=== PATIENT | female | born 1950 | race Caucasian/White ===

== ENCOUNTER → 2025-09-12 10:30 | Outpatient (BNVA) | payer MEDICARE, OTHER, SELFPAY | PROVIDERS: Absent Provider Internal Medicine Cardiovascular Disease; Referring Provider Nurse Practitioner Family; Visit Provider Internal Medicine Cardiovascular Disease | DX: R07.9 Chest pain, unspecified (principal); R94.31 Abnormal electrocardiogram [ECG] [EKG] | CPT/HCPCS: 93005 ==

== ENCOUNTER → 2025-09-15 13:39 | Outpatient (BNVA) | payer MEDICARE, OTHER, SELFPAY | PROVIDERS: Visit Provider Podiatrist Foot & Ankle Surgery | DX: M79.672 Pain in left foot (principal); M21.372 Foot drop, left foot; G57.92 Unspecified mononeuropathy of left lower limb | CPT/HCPCS: 73630; 99204 ==

== ENCOUNTER → 2025-09-25 07:30 | Outpatient (BNVA) | payer MEDICARE, OTHER, SELFPAY | PROVIDERS: Referring Provider Podiatrist Foot & Ankle Surgery; Visit Provider Specialist | DX: M21.372 Foot drop, left foot (principal); G62.89 Other specified polyneuropathies; M54.32 Sciatica, left side | CPT/HCPCS: 95885; 95909; 99203 ==

== ENCOUNTER 2025-09-29 13:43 | Outpatient (CLI) | payer MEDICARE, OTHER, SELFPAY ==
--- NOTE | 2025-09-29 14:15 | USCV_ITS ---
Renetta Gipson Age: 75 Gender: F : 1950 Exam Date: 09/29/2025 14:07 Ordering Phys: Nat Walker MD ([email or web address]) Technologist: Exam Location[place] [facility] [place]: cp sob dizzy BP: / HR: 73 Rhythm: Sinus Technical Quality: Adequate MEASUREMENTS (Male / Female) Normal Values 2D ECHO LV Diastolic Diameter PLAX 4.0 cm 4.2 - 5.9 / 3.9 - 5.3 cm IVS Diastolic Thickness 1.3 cm 0.6 - 1.0 / 0.6 - 0.9 cm IVS Systolic Thickness 1.8 cm LVPW Diastolic Thickness 1.2 cm 0.6 - 1.0 / 0.6 - 0.9 cm LVPW Systolic Thickness 1.7 cm LVOT Diameter 2.0 cm LV Ejection Fraction 2D Teich 65.6 % LV Ejection Fraction MOD 4C 59.8 % LV Ejection Fraction MOD 2C 64.6 % LV Ejection Fraction 2C AL 65.2 % LA Diameter 3.0 cm RA Systolic Volume 4C AL 30.4 ml RA Systolic Volume 4C MOD 28.5 ml Aorta at Sinotubular Diameter 2.7 cm IVC Diameter 1.7 cm M-MODE LA Ao Ratio MM 0.9 AV Cusp Separation MM 1.5 cm DOPPLER AV Peak Velocity 143.0 cm/s LVOT Peak Velocity 80.0 cm/s AV Area Cont Eq vti 2.0 cm squared AV Area Cont Eq pk 1.8 cm squared MV Peak Velocity 88.0 cm/s MV Area PHT 3.4 cm squared Mitral E to A Ratio 1.1 TV Peak Velocity 145.7 cm/s TR Peak Velocity 170.0 cm/s TR Peak Gradient 11.6 mmHg TV Peak E Velocity 90.0 cm/s PV Peak Velocity 104.0 cm/s FINDINGS Left Ventricle Normal left ventricular size, systolic function and wall thickness, with no regional wall motion abnormalities. Left ventricular ejection fraction is estimated at 60 %. Grade I/IV diastolic dysfunction (abnormal relaxation filling pattern), normal to mildly elevated filling pressures. Right Ventricle Normal right ventricular size and systolic function. Right Atrium Normal right atrial size. Left Atrium Normal left atrial size. IA Septum Normal appearance of the interatrial septum. Mitral Valve Normal mitral valve structure. No mitral valve stenosis or regurgitation. Aortic Valve Mild aortic valve calcification. No aortic valve stenosis. Trace aortic valve regurgitation. Tricuspid Valve Normal tricuspid valve structure. No tricuspid valve stenosis or regurgitation. Normal pulmonary pressure. Pulmonic Valve Trace pulmonary valve regurgitation. Pericardium No pericardial effusion. Aorta Normal diameter of the aortic root and ascending thoracic aorta. IVC Normal IVC diameter. CONCLUSIONS Normal left ventricular size, systolic function and wall thickness, with no regional wall motion abnormalities. Left ventricular ejection fraction is estimated at 60 %. Grade I/IV diastolic dysfunction (abnormal relaxation filling pattern), normal to mildly elevated filling pressures. No significant valvular abnormalities. There is no pericardial effusion. Right atrial pressure is around 5 mm of mercury. Nat Walker MD (Electronically Signed) Final Date: 11 October 2025 16:03 S
--- NOTE | 2025-09-29 15:30 | USCV_ITS ---
Leonela Renetta Age: 75 Gender: F : 1950 Exam Date: 09/29/2025 14:22 Ordering Phys: Nat Walker MD ([email or web address]) Technologist: [place] Exam Location: [facility] [place] Indication: PAD Risk Factors: Previous Vascular Surgery: Right Brachial BP: / Left Brachial BP: / Right Left Velocity (cm/s) Spectral Plaque Velocity (cm/s) Spectral Plaque Syst/Diast Broadening Syst/Diast Broadening 136.30/25.50 Prox CCA 107.40/ 24.70 78.30/ 21.70 Mid CCA 71.10 / 20.00 58.10/ 16.20 Distal CCA 53.10 / 16.00 65.40/ 21.30 Prox ICA 55.00 / 18.00 67.00/ 24.50 Mid ICA 47.60 / 18.30 85.70/ 36.70 Distal ICA 62.50 / 25.00 89.30 ECA 75.20 1.10 ICA/CCA 1.00 Antegrade Vertebral Antegrade 58.70/ 14.60 cm/s 85.20/ 25.20 cm/s Tri Subclavian Tri 82.00 72.50 FINDINGS Comparison: none available. No significant elevation of systolic or diastolic velocities. Waveforms are normal. Focal calcified plaque in the bifurcations. CONCLUSIONS Bilateral ICA stenosis less than 50%. Focal atherosclerosis at the bifurcations. Dr. Ju Charles DO (Electronically Signed) Final Date: 29 September 2025 15:45 S
== END 2025-09-29 13:44 | disposition home or self-care (01) ==
LOC: RAD 13:45
PROVIDERS: PCP Nurse Practitioner Family; Visit Provider Internal Medicine Cardiovascular Disease
DX: R42 Dizziness and giddiness (principal); R94.31 Abnormal electrocardiogram [ECG] [EKG]; R07.9 Chest pain, unspecified; I77.9 Disorder of arteries and arterioles, unspecified; I65.23 Occlusion and stenosis of bilateral carotid arteries; R93.1 Abnormal findings on diagnostic imaging of heart and coronary circulation; I35.8 Other nonrheumatic aortic valve disorders
CPT/HCPCS: 93306; 93880